=== PATIENT | female | born 1965 | race American Indian/Alaskan Native ===

== ENCOUNTER 2017-12-31 07:35 | Day surgery (SDC) | payer OTHER ==
[2017-12-31 08:12] VITALS: BMI 27.3
--- NOTE | 2017-12-31 09:28 | CP.SDSHP ---
Same Day Surgery H & P - History Proposed Procedure: COLONSCOPY Pre-Op Diagnosis: HX. OF COLON POLYPS - Previous Medical/Surgical History Misc: Other Pain: 2.Mild Pain Previous Surgical History: COLONSCOPY / POLYPECTOMY - Allergies Allergies: Allergies No Known Allergies Allergy (Verified 12/31/17 08:12) - Physical Exam General Appearance: N Vital Signs: Vital Signs 12/31/17 08:13 Temperature 98.9 F Pulse Rate 68 Respiratory 16 Rate Blood Pressure 112/75 O2 Sat by Pulse 99 Oximetry Mental Status: Alert & Oriented x3 Neuro: WNL Heart: WNL Lungs: WNL GI: Other - {Optional Preform as Required} Breast: WNL Abdomen: Other Rectal: Other Integument: WNL : WNL Ortho: WNL ENT: WNL - Impression Pt. Evaluated Today:Candidate for Anesthesia & Procedure: Yes - Date & Time Time: 09:28 Short Stay Discharge - Short Stay Discharge Admitting Diagnosis/Reason for Visit: HISTORY OF COLON POLYP Disposition: HOME/ ROUTINE
[2017-12-31] MEDS ORDERED: Propofol 10 mg/ml Inj (20 ML) ONE ×2 (09:29)
[2017-12-31] MEDS ORDERED: Lactated Ringer's 1,000 ML IV ONE ×2 (09:33)
[2017-12-31] MEDS ORDERED: Belladonna-Phenobarbital PO ONE (10:05)
[2017-12-31 11:46] VITALS: TEMP 97
[2017-12-31 11:54] VITALS: PULSE 66; RESP 15
[2017-12-31 11:59] VITALS: BP 132/75; O2SAT 98
== END 2017-12-31 11:00 | disposition home or self-care (01) ==
LOC: C.ENDO 07:35
PROVIDERS: ATTEND Specialist
DX: Z12.11 Encounter for screening for malignant neoplasm of colon (principal); Z86.010 Personal history of colon polyps; K64.8 Other hemorrhoids; K64.4 Residual hemorrhoidal skin tags
CPT/HCPCS: 45380; 88305; J2704; J7120